=== PATIENT | female | born 1965 | race Caucasian/White ===

== ENCOUNTER 2018-04-18 11:58 | Outpatient (CLI) | payer BC ==
--- NOTE | 2018-04-19 11:38 | Mammography Report ---
Procedure Date: 04/18/2018 Accession Number: [id number] / [id number] Procedure: FADIA - Screening Mammo Dig Bilat CPT Code: FULL RESULT: EXAM: Screening Mammo Dig Bilat DATE: 04/18/2018 12:16 PM CLINICAL HISTORY: 53-year-old with history of late childbearing for screening TECHNIQUE: Bilateral CC, laterally exaggerated CC, MLO views were obtained. COMPARISON: 11/09/2010 FINDINGS: The breasts demonstrate heterogeneously dense fibroglandular parenchyma bilaterally. A calcifying fibroadenoma is noted in the left upper central posterior breast. No suspicious masses, clustered microcalcifications, or regions of architectural distortion are identified. IMPRESSION: Benign findings RECOMMENDATION: Routine annual screening unless otherwise clinically indicated. BIRADS CATEGORY 2: Benign findings STANDARD QUALIFYING STATEMENTS: 1. This examination was reviewed with the aid of Computer-Aided Detection (CAD). 2. A negative or benign imaging report should not delay biopsy if clinically suspicious findings are present. Consider surgical consultation if warrented. More than 5% of cancers are not identified by imaging. 3. Dense breasts may obscure an underlying neoplasm.
== END 2018-04-18 11:59 | disposition home or self-care (01) ==
LOC: DI 11:58
PROVIDERS: ATTEND Nurse Practitioner Family
DX: Z12.31 Encounter for screening mammogram for malignant neoplasm of breast (principal)
CPT/HCPCS: 77067

== ENCOUNTER 2020-04-21 16:58 | Outpatient (CLI) | payer BC ==
--- NOTE | 2020-04-21 18:29 | Ultrasound Report ---
PROCEDURE: Head or Neck Soft Tissue INDICATIONS: Neck fullness TECHNIQUE: Real-time scanning was performed of the thyroid gland, with image documentation. Color Doppler inter rogation was performed of the regions of interest. COMPARISON: None FINDINGS: Right: Right thyroid lobe measures 7.4 x 2.1 x 2.1 cm in size. Left: Left thyroid lobe measures 7.1 x 1.8 x 1.7 cm in size. Isthmus: Isthmus measures 0.6 cm in thickness. Tiny less than 5 mm cysts are seen scattered in bilateral thyroid parenchyma. No gross solid-appearin g thyroid nodule is identified. A 2.3 x 0.6 x 1.4 cm lymph node is seen in right upper neck. IMPRESSION: 1. Likely tiny colloid cysts seen in bilateral thyroid lobes. Thyroidomegaly. No discrete solid-appea ring thyroid nodule. 2. Subcentimeter lymph nodes seen in bilateral neck soft tissue measures up to 2.3 x 0.6 x 1.4 cm in right upper neck. Reviewed by: Oz Bell MD on 04/21/2020 6:28 PM PDT Approved by: Oz Bell MD on 04/21/2020 6:28 PM PDT Station ID: [id number]
== END 2020-04-21 16:59 | disposition home or self-care (01) ==
LOC: DI 16:58
PROVIDERS: ATTEND Family Medicine
DX: E04.1 Nontoxic single thyroid nodule (principal)
CPT/HCPCS: 76536

== ENCOUNTER 2020-06-24 09:00 | Outpatient (CLI) | payer BC ==
--- NOTE | 2020-06-24 17:30 | Ultrasound Report ---
PROCEDURE: Head or Neck Soft Tissue INDICATIONS: FAMILY H/O THYROID AND OTHER CANCERS TECHNIQUE: Real time scanning was performed of the neck region of interest, with image documentation . COMPARISON: 04/21/2020 FINDINGS: A benign-appearing right cervical chain lymph node measures 6 mm in short axis, stable size and morphology compared to the prior study. No suspicious increased vascularity. No abnormal lymph n ode present to warrant fine-needle aspiration. IMPRESSION: 1. Normal lymph node morphology. 2. Fine-needle aspiration of benign-appearing lymph node was deferred. Given family history, imaging surveillance is recommended. Patient was counseled to this effect. Reviewed by: Alyssa Tellez MD on 06/24/2020 5:29 PM PDT Approved by: Alyssa Tellez MD on 06/24/2020 5:29 PM PDT Station ID: [id number]
== END 2020-06-24 09:01 | disposition home or self-care (01) ==
LOC: DI 09:00
PROVIDERS: ATTEND Family Medicine
DX: R59.0 Localized enlarged lymph nodes (principal)
CPT/HCPCS: 76536

== ENCOUNTER 2022-12-21 12:19 | Outpatient (CLI) | payer BC ==
--- NOTE | 2022-12-21 16:08 | Ultrasound Report ---
PROCEDURE: Head or Neck Soft Tissue INDICATIONS: NONTOXIC GOITER TECHNIQUE: Real-time scanning was performed of the thyroid gland, with image documentation. COMPARISON: Ultrasound dated 06/24/2020. Ultrasound dated 04/21/2020 FINDINGS: Right: Thyroid lobe measures 6.7 x 1.8 x 1.9 cm, and is homogeneous in echotexture. Left: Thyroid lobe measures 6.3 x 1.6 x 1.7 cm, and is homogenous in echotexture. Isthmus: 4 mm thick. Nodule number: One Location: Left mid thyroid Size: 0.5 x 0.3 x 0.5 cm. Composition: Predominantly cystic Echogenicity: Hypoechoic Shape: wider than tall. Margins: Smooth Echogenic foci: None Total points: 2 ACR TI-RADS category: 2 IMPRESSION: No evidence of malignancy. Reviewed by: Fadumo Schwartz MD on 12/21/2022 4:07 PM PDT Approved by: aFdumo Schwartz MD on 12/21/2022 4:07 PM PDT Station ID: [id number]
== END 2022-12-21 12:20 | disposition home or self-care (01) ==
LOC: DI 12:19
PROVIDERS: ATTEND Family Medicine
DX: E04.1 Nontoxic single thyroid nodule (principal)